=== PATIENT | male | born 1985 | race African-American/Black ===

== ENCOUNTER 2021-10-23 13:09 | Emergency (ER) | payer MEDICAID ==
[~2021-10-23] VITALS: Ht 177.8 cm; Wt 79.5 kg
[2021-10-23 17:21] LABS: BASOPHILS % 0.4 % (0.0-2.0); EOSINOPHILS % 1.5 % (0.0-5.0); HEMATOCRIT. 41.3 % (42.0-52.0); HEMOGLOBIN. 13.6 g/dL (14.0-18.0); LYMPHOCYTES % 7.7 % (20.0-50.0); MEAN CORPUSCULAR HEMOGLOBIN 26.6 pg (28.0-32.0); MEAN PLATELET VOLUME 7.6 fl (7.4-10.4); MONOCYTES % 12.5 % (2.0-8.0); NEUTROPHILS % 77.9 % (40.0-76.0); PLATELET 243 x1000/uL (130-400)
[2021-10-23 17:29] LABS: CHLORIDE 101 mEq/L (98-107)
[2021-10-23] MEDS ORDERED: KETOROLAC 30MG/ML VIAL IM NR (17:45)
[2021-10-23 18:10] VITALS: BP 124/74
== END 2021-10-23 20:04 | disposition home or self-care (01) ==
LOC: ER 13:09
DX: B34.9 Viral infection, unspecified (principal); Z90.49 Acquired absence of other specified parts of digestive tract
CPT/HCPCS: 36415; 71045; 80053; 84484; 85025; 93005; 96372; 99285; J1885